=== PATIENT | female | born 1995 | race Caucasian/White ===

== ENCOUNTER 2019-01-30 23:48 | Emergency (ER) | payer OTHER ==
[2019-01-30] MEDS ORDERED: EPINEPHRINE 1 MG/ML 1 ML VIAL IM ONE (23:54)
[2019-01-30] MEDS ORDERED: methylPREDNISolone 125 MG* 2 ML VIAL IV ONE (23:55)
[2019-01-30] MEDS ORDERED: diPHENhydraMINE IV* 50 MG/ML 1 ml VIAL (BENADRYL) SLOW PUSH ONE (23:55)
[2019-01-30] MEDS ORDERED: NS 0.9% 1000 ML** 1,000 ML IV ONE (23:55)
[2019-01-30] MEDS ORDERED: Albuterol 2.5 MG/3 ML NEB.SOL* (0.083%) INH ONE (23:57)
[2019-01-30] MEDS ORDERED: Albuterol/Ipratropium NEB.SOL* Albuterol 2.5 MG/Ipratropium 0.5 MG 3 ML INH ONE (23:57)
--- NOTE | 2019-01-30 23:58 | ED ---
Allergic Reaction/Systemic - HPI Summary HPI Summary: Patient is a 23 y/o F presenting to ED with complaints of allergic reaction after consuming peanuts about an hour ago today. Patient has a known peanut allergy, she states that the food she was eating at a restaurant was not labeled as containing peanuts. She has complaints of facial swelling, throat swelling and difficulty breathing. Patient does not have an epi-pen and states that she has never had such a severe reaction to peanuts previously. Patient states that she typically just develops pruritus when she is exposed to peanuts. On triage, pain is denied, nothing is noted to aggravate/alleviate Sx. Home medications and allergies are reviewed. - History of Current Complaint Chief Complaint: EDAllergicReaction Hx Obtained From: Patient Hx Last Menstrual Period: 07/31/12 Onset/Duration: Started hours ago - one hour ago, Still Present Timing: Constant, Lasting Hours - one hour ago Severity Currently: None Pain Intensity: 0 Pain Scale Used: 0-10 Numeric Character: Swelling Aggravating Factor(s): Nothing Alleviating Factor(s): Nothing Associated Signs And Symptoms: Positive: Difficulty Breathing, Throat Tightening , Other: - facial and throat swelling - Allergies/Home Medications Allergies/Adverse Reactions: Allergies Allergy/AdvReac Type Severity Reaction Status Date / Time peanut Allergy Severe Airway Verified 01/31/19 00:35 Obstruction PMH/Surg Hx/FS Hx/Imm Hx Sensory History: Denies: Hx Legally Blind, Hx Deafness Opthamlomology History: Denies: Hx Legally Blind EENT History: Denies: Hx Deafness Infectious Disease History: No Infectious Disease History: Denies: Traveled Outside the [place] in Last 30 Days - Family History Known Family History: Negative: Cardiac Disease, Hypertension, Diabetes - Social History Alcohol Use: Occasionally Substance Use Type: Reports: None Smoking Status (MU): Never Smoked Tobacco Review of Systems Respiratory: Other - positive - difficulty breathing Musculoskeletal: Other - positive - facial and throat swelling All Other Systems Reviewed And Are Negative: Yes Physical Exam - Summary Physical Exam Summary: VITAL SIGNS: Reviewed. GENERAL: Patient is a well-developed and nourished female who is lying comfortable in the stretcher. Patient is not in any acute respiratory distress. HEAD AND FACE: No signs of trauma. No ecchymosis, hematomas or skull depressions. No sinus tenderness. Swollen orbital area, facial swelling noted. EYES: PERRLA, EOMI x 2, No injected conjunctiva, no nystagmus. EARS: Hearing grossly intact. Ear canals and tympanic membranes are within normal limits. MOUTH: Swollen lips are noted. NECK: Supple, trachea is midline, no adenopathy, no JVD, no carotid bruit, no c- spine tenderness, neck with full ROM CHEST: Symmetric, no tenderness at palpation LUNGS: Clear to auscultation bilaterally. No wheezing or crackles. CVS: Regular rate and rhythm, S1 and S2 present, no murmurs or gallops appreciated. ABDOMEN: Soft, non-tender. No signs of distention. No rebound no guarding, and no masses palpated. Bowel sounds are normal. EXTREMITIES: FROM in all major joints, no edema, no cyanosis or clubbing. NEURO: Alert and oriented x 3. No acute neurological deficits. Speech is normal and follows commands. SKIN: Dry and warm; diffuse macular rash. Triage Information Reviewed: Yes Vital Signs On Initial Exam: Initial Vitals Temp Pulse Resp BP Pulse Ox 99.4 F 96 20 116/89 96 01/30/19 23:49 01/30/19 23:49 01/30/19 23:49 01/30/19 23:49 01/30/19 23:49 Vital Signs Reviewed: Yes Diagnostics - Vital Signs Vital Signs Temp Pulse Resp BP Pulse Ox 01/30/19 23:49 99.4 F 96 20 116/89 96 - Laboratory Lab Statement: Any lab studies that have been ordered have been reviewed, and results considered in the medical decision making process. Re-Evaluation - Re-Evaluation First Eval Re-Evaluation Time: 01:01 Change: Improved Comment: Patient reports improvement in Sx. She will be discharged to home with prescriptions for epinephrine, hydroxyzine, and prednisone and follow up with her PCP. Strict return precautions given. She is agreeable with this plan. Allergic Reaction Course/Dx - Course Course Of Treatment: Patient is a 23 y/o F presenting to ED with complaints of allergic reaction after consuming peanuts about an hour ago today. Patient has a known peanut allergy, she states that the food she was eating at a restaurant was not labeled as containing peanuts. She has complaints of facial swelling, throat swelling and difficulty breathing. Patient does not have an epi-pen and states that she has never had such a severe reaction to peanuts previously. Patient states that she typically just develops pruritus when she is exposed to peanuts one hour ago. On physial exam, swollen lips, diffuse macular rash, swollen orbital area and facial swelling are noted. During ED course, patient received fluids, solu-medrol 125 mg IV, Pepcid 20 mg IV, epinephrine 0.3 IM ONCE , Benadryl 25 mg SLOW PUSH, duoneb, 1 neb, and albuterol 2.5 mg INH ED ONCE. 0101 - Patient reports improvement in Sx. She will be discharged to home with prescriptions for epinephrine, hydroxyzine, and prednisone and follow up with her PCP. Strict return precautions given. She is agreeable with this plan. - Diagnoses Provider Diagnoses: Allergic reaction to peanut Discharge - Sign-Out/Discharge Documenting (check all that apply): Patient Departure - discharge Patient Received Moderate/Deep Sedation with Procedure: No - Discharge Plan Condition: Stable Disposition: HOME Prescriptions: EPINEPHrine [Epipen 2-Merrill] 0.3 mg IM ONCE PRN #1 inj PRN Reason: Allergy Symptoms hydrOXYzine HCL TAB* [Atarax 25 MG TAB*] 25 mg PO TID PRN #14 tab PRN Reason: Itching predniSONE TAB* [Deltasone TAB*] 50 mg PO DAILY #5 tab Patient Education Materials: Peanut Allergy (ED) Additional Instructions: PLEASE RETURN TO THE ED IMMEDIATELY FOR WORSENING OR CONCERNING SYMPTOMS. FOLLOW UP WITH YOUR PRIMARY CARE PHYSICIAN WITHIN THREE DAYS. - Attestation Statements Document Initiated by Scribe: Yes Documenting Scribe: MAEGAN LOTT Provider For Whom Barb is Documenting (Include Credential): BARRIE SEBASTIAN MD Scribe Attestation: IMAEGAN, scribed for BARRIE SEBASTIAN MD on 01/31/19 at 0312. Status of Scribe Document: Ready
[2019-01-31] MEDS ORDERED: Famotidine IV* 10 MG/ML 2 ML (20 mg) IV SLOW PU ONE (00:46)
[2019-01-31 01:25] VITALS: BP 119/58
[2019-01-31] MEDS ORDERED: Famotidine IV* 10 MG/ML 2 ML (20 mg) IV SLOW PU SCH (09:00)
== END 2019-01-31 01:12 | disposition home or self-care (01) ==
LOC: ED 23:48
DX: T78.1XXA Other adverse food reactions, not elsewhere classified, initial encounter (principal); R06.00 Dyspnea, unspecified; R22.0 Localized swelling, mass and lump, head; R21 Rash and other nonspecific skin eruption; Z91.010 Allergy to peanuts; X58.XXXA Exposure to other specified factors, initial encounter
CPT/HCPCS: 96361; 96372; 96374; 96375; 99284; A9270-GY; J1200; J2930